=== PATIENT | male | born 1970 | race Caucasian/White ===

== ENCOUNTER 2018-09-23 09:53 | Emergency (ER) | payer MEDICAID ==
[~2018-09-23] VITALS: Ht 170.2 cm; Wt 70.0 kg
[~2018-09-23 09:53] MED LIST: ALBU8.5H8 IH; ALBU8HFA PO; ONDA8TAB9 PO; PANT-47 PO; PRED50TA PO; QUET50TA PO
[2018-09-23 10:00] VITALS: BP 131/78
[2018-09-23] MEDS ORDERED: DICL50TA8 PO (10:24)
[2018-09-23] MEDS ORDERED: ketorolac trometh inj. 60 MG/2 ML VIAL IM ONE (10:25)
== END 2018-09-23 11:28 | disposition home or self-care (01) ==
LOC: ER 09:53
DX: M25.511 Pain in right shoulder (principal); G89.29 Other chronic pain; I10 Essential (primary) hypertension; J45.909 Unspecified asthma, uncomplicated; Z79.899 Other long term (current) drug therapy; Z56.0 Unemployment, unspecified
CPT/HCPCS: 73030; 96372; 99283; J1885

== ENCOUNTER 2020-08-28 06:29 | Inpatient (IN) | payer MEDICAID ==
[~2020-08-28] VITALS: Ht 167.6 cm; Wt 81.8 kg
[~2020-08-28 06:29] MED LIST changes: +DICL50TA8 PO
[2020-08-28] MEDS ORDERED: normal saline 1000ML IV soln IVB ONE (07:05)
[2020-08-28] MEDS ORDERED: proCHLORperazine 10 MG/2 ml inj IV ONE (07:05)
[2020-08-28] MEDS ORDERED: pantoprazole 40 MG vial IV ONE (07:05)
[2020-08-28] MEDS ORDERED: diazepam inj 5 MG/ML inj. IV ONE ×2 (07:05→08:40)
[2020-08-28 07:43] LABS: BASOPHILS % (AUTO) 0.3 % (0-1); LYMPHOCYTES # (AUTO) 1.6 X10'3 (1.1-4.8); MEAN CORPUSCULAR HEMOGLOBIN 25.1 PG (27.0-31.0)
[2020-08-28 07:45] LABS: BASOPHILS # (AUTO) 0.1 X10'3 (0-0.2); EOSINOPHILS % (AUTO) 0 % (0-6); HEMATOCRIT 38.8 % (42.0-52.0); HEMOGLOBIN 12.4 g/dl (14.0-17.9); LYMPHOCYTES % (AUTO) 9.2 % (21-51); MEAN CORPUSCULAR HGB CONC 32.1 g/dL (33.0-36.5); MEAN CORPUSCULAR VOLUME 78.2 FL (78-98); MEAN PLATELET VOLUME 9.5 FL (7.4-10.4); MONOCYTES % (AUTO) 5.6 % (2-12); NEUTROPHILS # (AUTO) 14.5 X10'3 (1.8-7.7); NEUTROPHILS % (AUTO) 84.9 % (42-75); PLATELET COUNT 281 X10'3 (140-440); RED BLOOD COUNT 4.96 X10'6 (4.70-6.10); RED CELL DISTRIBUTION WIDTH 18.3 % (11.5-14.5); WHITE BLOOD COUNT 17.1 X10'3 (4.5-11.0)
[2020-08-28 07:59] LABS: ALANINE AMINOTRANSFERASE 29 U/L (12-78); ALBUMIN 4.3 G/DL (3.4-5.0); ALKALINE PHOSPHATASE 104 IU/L (46-116); ANION GAP 20 (8-16); ASPARTATE AMINO TRANSFERASE 40 U/L (10-37); BILIRUBIN,TOTAL 0.4 MG/DL (0.1-1.0); BLOOD UREA NITROGEN 18 MG/DL (7-18); BUN/CREATININE RATIO 14.3 (5.4-32.0); CHLORIDE 99 MMOL/L (99-107); CREATININE 1.26 MG/DL (0.60-1.10); GLUCOSE 137 MG/DL (70-104); LIPASE < 50 U/L (73-393); POTASSIUM 3.3 MMOL/L (3.5-5.1); SODIUM 142 MMOL/L (135-145); TOTAL PROTEIN 8.5 G/DL (6.4-8.2); eGFR 60 ML/MIN
[2020-08-28 08:21] LABS: GASTRIC OCCULT BLOOD POSITIVE (Neg)
[2020-08-28] MEDS ORDERED: ondansetron/PF 4mg/2ml inj IV ONE (09:35)
[2020-08-28] MEDS ORDERED: metoclopramide 5 mg/ml inj IV ONE (10:30)
--- NOTE | 2020-08-28 10:30 | NUR ---
SPOKE WITH PT'S AND UPDATED HER ON HIS CONDITION. PT C/O STILL FEELING NAUSEOUS, DR. VINSON WAS MADE AWARE.
--- NOTE | 2020-08-28 11:22 | NUR ---
po challenging pt
[2020-08-28] MEDS ORDERED: iohexol 300mg/ml 100ml inj. ONE (12:44)
[2020-08-28] MEDS ORDERED: IPRA4AER PO (14:18)
[2020-08-28] MEDS ORDERED: ALBU17AE26 PO (14:18)
[2020-08-28] MEDS ORDERED: DICL100G30 TOP (14:18)
[2020-08-28] MEDS ORDERED: QUET400T54 PO (14:18)
[2020-08-28] MEDS ORDERED: GABA-530 PO (14:18)
[2020-08-28] MEDS ORDERED: BECL10.6 PO (14:18)
[2020-08-28] MEDS ORDERED: ESZO3TAB44 PO (14:18)
[2020-08-28] MEDS ORDERED: OMEP40CA13 PO (14:18)
[2020-08-28] MEDS ORDERED: mag hydrox/Alum hydrox/simeth 30ml oral suspension PO PRN ×2 (14:55→16:50)
[2020-08-28] MEDS ORDERED: magnesium hydroxide 30ml (MOM) UD suspension PO PRN ×2 (14:55→16:50)
[2020-08-28] MEDS ORDERED: acetaminophen 325mg tablet PO PRN ×3 (14:55→16:50)
[2020-08-28] MEDS: pantoprazole 40MG/NS 100ML BAG 100 ML IV SCH ×3 (15:20→20:39)
[2020-08-28] MEDS ORDERED: zolpidem 5mg tablet PO PRN (16:45)
[2020-08-28] MEDS ORDERED: albuterol 2.5 MG/3 ML nebule NEB PRN (16:45)
[2020-08-28] MEDS ORDERED: acetaminophen 650mg rectal suppository RC PRN (16:50)
[2020-08-28] MEDS ORDERED: metoclopramide 5 mg/ml inj IV PRN (16:50)
[2020-08-28] MEDS ORDERED: magnesium 4gm in 100ml NS 100 ML IV PRN (16:50)
[2020-08-28] MEDS ORDERED: potassium Cl 20 mEq SR tablet PO PRN ×2 (16:50)
[2020-08-28] MEDS ORDERED: HYDROcodone/acetaminophen 5mg/325mg tablet PO PRN (16:50)
[2020-08-28] MEDS ORDERED: ondansetron/PF 4mg/2ml inj IV PRN (16:50)
[2020-08-28] MEDS ORDERED: magnesium Cl slow-release 64mg tablet PO PRN (16:50)
[2020-08-28] MEDS ORDERED: bisacodyl 10mg suppository rectal RC PRN (16:50)
[2020-08-28] MEDS ORDERED: morphine 2 MG/ML inj. syringe IV PRN (16:50)
[2020-08-28] MEDS ORDERED: magnesium 2GM in 50ml NS 50 ML IV PRN (16:50)
[2020-08-28] MEDS ORDERED: potassium CL 10mEq/100ml bag 100 ML IV PRN (16:50)
[2020-08-28] MEDS: dextrose 5%-normal saline 1,000 ML IV SCH (17:18)
[2020-08-28 17:43] LABS: HEMOGLOBIN A1C 6.2 % (4.5-6.2)
[2020-08-28] MEDS: K and/or MAG REPLACEMENT MC SCH (19:56)
[2020-08-28] MEDS ORDERED: QUETIAPINE FUMARATE PO SCH (21:00)
[2020-08-28] MEDS: budesonide 0.5mg/2ml UD nebule IH SCH (21:18)
--- NOTE | 2020-08-28 21:24 | NUR ---
RT JUST AT BEDSIDE TO GIVE PULMICORT NEB
[2020-08-28] MEDS: morphine 2 MG/ML inj. syringe IV PRN (21:46)
--- NOTE | 2020-08-28 21:54 | NUR ---
PT TAKES SEROQUEL 400 MG 2 TABS HS. WE DO NOT HAVE THIS IN OUR FORMULARY AND THE PT IS UNABLE TO BRING IT HERE. PHARMACIST, MARIO, CONSULTED AND RECOMMENDS SEROQUEL IR [address] MOORE CALLED AND VERBAL RECEIVED FOR THIS NEW ORDER. PT PL[facility] BED. GIVEN MSIV 2 MG FOR ABD PAIN OF 7 OUT OF 10. PT WITH NO NAUSEA.
--- NOTE | 2020-08-28 22:11 | NUR ---
relieving RN for break, pt is now on hospital bed, no rooms available
[2020-08-28] MEDS: quetiapine 100mg tablet PO SCH (22:19)
--- NOTE | 2020-08-28 23:58 | NUR ---
PT SLEEPING. AWAITING IPA. LIKELY ADMIT HOLD IN ER THROUGH THE NIGHT.
[2020-08-29] VITALS (10 sets, daily range): BP systolic 131–150; BP diastolic 76–98
--- NOTE | 2020-08-29 00:10 | NUR ---
PT VOIDED 400 CC'S LIGHT CL URINE IN URINAL. SAMPLE SENT FOR UA. PT WITHI NO NEEDS AT THIS TIME. REPORTS MINIMAL PAIN AND NO NAUSEA. AWAITING IPA.
[2020-08-29 00:39] LABS: CLARITY,URINE CLEAR (Clear); COLOR,URINE YELLOW (Yellow); GLUCOSE, URINE NEGATIVE (Neg); KETONES,URINE 40 mg/dl (Neg); LEUKOCYTE ESTERASE ,URINE NEGATIVE (Neg); NITRITES, URINE NEGATIVE (Neg); OCCULT BLOOD,URINE NEGATIVE (Neg); PH,URINE 7.5 (4.8-8.0); PROTEIN,URINE TRACE mg/dl (Neg); UROBILINOGEN,URINE 0.2 E.U/dL (0.2-1.0)
[2020-08-29 00:42] LABS: UA COLLECTION TYPE URINAL
[2020-08-29 00:45] LABS: URINE AMPHETAMINE SCREEN NEGATIVE (Neg); URINE BARBITUATE SCREEN NEGATIVE (Neg); URINE BENZODIAZEPINES SCREEN POSITIVE (Neg); URINE CANNABINOID SCREEN POSITIVE (Neg); URINE COCAINE SCREEN NEGATIVE (Neg); URINE METHADONE SCREEN NEGATIVE (Neg); URINE OPIATE SCREEN POSITIVE (Neg); URINE PHENCYCLIDINE SCREEN NEGATIVE (Neg)
[2020-08-29 00:54] LABS: SQUAMOUS EPITHELIAL CELL,UR FEW /LPF (FEW); WBC,URINE 0-4 /HPF (0-4)
[2020-08-29 00:55] LABS: BACTERIA,URINE FEW /HPF (Neg); RBC,URINE NONE SEEN /HPF (0-2)
--- NOTE | 2020-08-29 01:49 | NUR ---
pt awake and up to br to void. vss. pain increasing to 7-8 and some mild nausea. given msiv 2 mg and zofran
[2020-08-29] MEDS: ondansetron/PF 4mg/2ml inj IV PRN ×2 (01:50→17:23)
[2020-08-29] MEDS: morphine 2 MG/ML inj. syringe IV PRN ×5 (01:50→19:06)
[2020-08-29] MEDS: pantoprazole 40MG/NS 100ML BAG 100 ML IV SCH ×4 (01:56→17:43)
[2020-08-29] MEDS: dextrose 5%-normal saline 1,000 ML IV SCH ×2 (04:52→12:50)
[2020-08-29] MEDS: HYDROcodone/acetaminophen 10/325mg tab PO PRN ×2 (04:55→17:43)
--- NOTE | 2020-08-29 06:48 | NUR ---
Patient in room ED 13. I have received report from joanna caba and had the opportunity to ask questions and assume patient care.
[2020-08-29] MEDS: quetiapine 100mg tablet PO SCH ×2 (08:00→19:43)
[2020-08-29 08:25] LABS: BASOPHILS % (AUTO) 0.3 % (0-1); EOSINOPHILS % (AUTO) 0.1 % (0-6); HEMATOCRIT 32.3 % (42.0-52.0); HEMOGLOBIN 10.5 g/dl (14.0-17.9); LYMPHOCYTES # (AUTO) 1.8 X10'3 (1.1-4.8); LYMPHOCYTES % (AUTO) 20.7 % (21-51); MEAN CORPUSCULAR HEMOGLOBIN 25.4 PG (27.0-31.0); MEAN CORPUSCULAR HGB CONC 32.7 g/dL (33.0-36.5); MEAN CORPUSCULAR VOLUME 77.7 FL (78-98); MEAN PLATELET VOLUME 9.3 FL (7.4-10.4); MONOCYTES # (AUTO) 1.2 X10'3 (0-0.9); MONOCYTES % (AUTO) 13.7 % (2-12); NEUTROPHILS # (AUTO) 5.7 X10'3 (1.8-7.7); NEUTROPHILS % (AUTO) 65.2 % (42-75); PLATELET COUNT 194 X10'3 (140-440); RED BLOOD COUNT 4.15 X10'6 (4.70-6.10); RED CELL DISTRIBUTION WIDTH 17.9 % (11.5-14.5); WHITE BLOOD COUNT 8.8 X10'3 (4.5-11.0)
[2020-08-29 08:40] LABS: ALANINE AMINOTRANSFERASE 22 U/L (12-78); ALBUMIN 3.2 G/DL (3.4-5.0); ALBUMIN/GLOBULIN RATIO 0.9 (1.1-1.5); ALKALINE PHOSPHATASE 76 IU/L (46-116); ANION GAP 6 (8-16); ASPARTATE AMINO TRANSFERASE 25 U/L (10-37); BILIRUBIN,TOTAL 0.4 MG/DL (0.1-1.0); BLOOD UREA NITROGEN 11 MG/DL (7-18); BUN/CREATININE RATIO 13.9 (5.4-32.0); CALCIUM 8.1 MG/DL (8.5-10.1); CHLORIDE 105 MMOL/L (99-107); CHOL/HDL RATIO 3.4 (0.00-4.99); CHOLESTEROL 193 MG/DL (0-200); CREATININE 0.79 MG/DL (0.60-1.10); GLUCOSE 131 MG/DL (70-104); HDL CHOLESTEROL 57 MG/DL (35-60); LDL CHOLESTEROL 118 MG/DL (50-100); MAGNESIUM 1.9 MG/DL (1.5-2.4); SODIUM 138 MMOL/L (135-145); TOTAL CARBON DIOXIDE 27.3 MMOL/L (24-32); TOTAL PROTEIN 6.6 G/DL (6.4-8.2); TRIGLYCERIDES 71 MG/DL (20-135); eGFR > 90 ML/MIN
[2020-08-29 08:42] LABS: POTASSIUM 2.9 MMOL/L (3.5-5.1)
--- NOTE | 2020-08-29 08:44 | NUR ---
PAGED DR KWOK RE: PAGER ID: [phone] MESSAGE: ALEXA SMITH. Ashley 2.9. WILL REPLACE PER PROTOCOL. SURGICAL [facility] [id number]
[2020-08-29] MEDS: K and/or MAG REPLACEMENT MC SCH ×2 (08:46→19:07)
[2020-08-29] MEDS: potassium CL 10mEq/100ml bag 100 ML IV PRN ×8 (08:49→22:51)
[2020-08-29] MEDS: budesonide 0.5mg/2ml UD nebule IH SCH ×2 (08:56→19:52)
[2020-08-29] MEDS ORDERED: ipratropium/albuterol 3ml nebule NEB PRN (09:15)
[2020-08-29] MEDS: metroNIDAZOLE-Flagyl 500mg/NS 100 ML IV SCH ×2 (09:54→17:43)
[2020-08-29 10:21] LABS: FERRITIN 19 NG/ML (26-388)
[2020-08-29 11:00] LABS: IRON 101 UG/DL (53-167)
[2020-08-29 11:01] LABS: % IRON SATURATION 29 % (11-46); TOTAL IRON BINDING CAPACITY 347 UG/DL (259-388)
[2020-08-29] MEDS ORDERED: MIDAZolam 5mg/5ml vial ONE (11:53)
[2020-08-29] MEDS ORDERED: LIDOcaine Viscous 15ml cup ONE (11:53)
[2020-08-29] MEDS ORDERED: fentaNYL/PF 50MCG/1 ML 2ML syringe ONE (11:53)
[2020-08-29] MEDS: levoFLOXACIN-Levaquin 750MG/D5 150 ML IV SCH (14:11)
[2020-08-29] MEDS: sodium ferric gluc complex inj 125 MG in normal saline 100ml IV soln 90 ML IV SCH (14:53)
--- NOTE | 2020-08-29 18:00 | NUR ---
I have reviewed and agree with all medications administered and interventions performed by [employer] Student She Juárez.
--- NOTE | 2020-08-29 18:30 | NUR ---
Problems reprioritized. Patient report given, questions answered & plan of care reviewed with matthew caba.
[2020-08-29] MEDS: gabapentin 100mg capsule PO PRN (19:04)
[2020-08-29] MEDS: diatr meglu/diatrizoate 30ml oral sol.-(3 dose) bottle PO SCH (21:35)
[2020-08-29] MEDS: LORazepam 2 mg/ml vial IV PRN (21:37)
[2020-08-30] VITALS: BP 118/64
[2020-08-30] MEDS: pantoprazole 40MG/NS 100ML BAG 100 ML IV SCH ×3 (00:16→05:28)
[2020-08-30] MEDS: metroNIDAZOLE-Flagyl 500mg/NS 100 ML IV SCH ×4 (00:17→23:52)
[2020-08-30] MEDS: dextrose 5%-normal saline 1,000 ML IV SCH ×3 (00:18→19:20)
[2020-08-30 00:37] VITALS: BP 118/64
[2020-08-30] MEDS: HYDROcodone/acetaminophen 10/325mg tab PO PRN ×2 (00:37→05:28)
[2020-08-30] MEDS: morphine 2 MG/ML inj. syringe IV PRN ×5 (02:29→23:55)
[2020-08-30 02:47] LABS: BASOPHILS % (AUTO) 0.5 % (0-1); EOSINOPHILS % (AUTO) 0.4 % (0-6); HEMATOCRIT 30.2 % (42.0-52.0); HEMOGLOBIN 9.9 g/dl (14.0-17.9); LYMPHOCYTES # (AUTO) 2.2 X10'3 (1.1-4.8); LYMPHOCYTES % (AUTO) 28.5 % (21-51); MEAN CORPUSCULAR HGB CONC 32.9 g/dL (33.0-36.5); MEAN PLATELET VOLUME 9.6 FL (7.4-10.4); MONOCYTES # (AUTO) 1.1 X10'3 (0-0.9); MONOCYTES % (AUTO) 13.7 % (2-12); NEUTROPHILS # (AUTO) 4.5 X10'3 (1.8-7.7); NEUTROPHILS % (AUTO) 56.9 % (42-75); PLATELET COUNT 194 X10'3 (140-440); RED BLOOD COUNT 3.82 X10'6 (4.70-6.10); RED CELL DISTRIBUTION WIDTH 17.8 % (11.5-14.5); WHITE BLOOD COUNT 7.9 X10'3 (4.5-11.0)
[2020-08-30 02:56] LABS: ALANINE AMINOTRANSFERASE 19 U/L (12-78); ALBUMIN 2.9 G/DL (3.4-5.0); ALKALINE PHOSPHATASE 72 IU/L (46-116); ANION GAP 6 (8-16); ASPARTATE AMINO TRANSFERASE 20 U/L (10-37); BILIRUBIN,TOTAL 0.4 MG/DL (0.1-1.0); BLOOD UREA NITROGEN 7 MG/DL (7-18); BUN/CREATININE RATIO 8.8 (5.4-32.0); CALCIUM 7.8 MG/DL (8.5-10.1); CHLORIDE 107 MMOL/L (99-107); GLUCOSE 110 MG/DL (70-104); MAGNESIUM 1.5 MG/DL (1.5-2.4); PHOSPHORUS 2.3 MG/DL (2.3-4.5); POTASSIUM 3.5 MMOL/L (3.5-5.1); SODIUM 140 MMOL/L (135-145); TOTAL CARBON DIOXIDE 27.5 MMOL/L (24-32); TOTAL PROTEIN 5.9 G/DL (6.4-8.2); eGFR > 90 ML/MIN
--- NOTE | 2020-08-30 06:32 | NUR ---
Reported off to Maricarmen CHEN. Patient is resting with relaxed and unlabored respirations. Call light and items of frequent use within reach.
--- NOTE | 2020-08-30 06:39 | NUR ---
Patient in room [facility]. I have received report from APRIL Lua and had the opportunity to ask questions and assume patient care.
[2020-08-30] MEDS: budesonide 0.5mg/2ml UD nebule IH SCH ×2 (07:15→20:35)
[2020-08-30] MEDS: quetiapine 100mg tablet PO SCH ×2 (07:20→19:14)
[2020-08-30] MEDS: diatr meglu/diatrizoate 30ml oral sol.-(3 dose) bottle PO SCH ×2 (07:21→10:32)
[2020-08-30 08:00] VITALS: BP 123/76
[2020-08-30] MEDS: K and/or MAG REPLACEMENT MC SCH ×2 (08:00→19:07)
[2020-08-30] MEDS: sodium ferric gluc complex inj 125 MG in normal saline 100ml IV soln 90 ML IV SCH (09:27)
[2020-08-30] MEDS ORDERED: iohexol 300mg/ml 100ml inj. ONE (10:30)
--- NOTE | 2020-08-30 10:42 | NUR ---
Pt transported to CT via wheelchair.
--- NOTE | 2020-08-30 10:59 | NUR ---
Pt back from CT
[2020-08-30 11:00] VITALS: BP 147/93
[2020-08-30] MEDS: levoFLOXACIN-Levaquin 750MG/D5 150 ML IV SCH (11:24)
[2020-08-30] MEDS ORDERED: LORazepam 2 mg/ml vial IV ONE (12:50)
[2020-08-30] MEDS: gabapentin 100mg capsule PO PRN ×2 (14:59→21:31)
--- NOTE | 2020-08-30 16:33 | NUR ---
Pt transported to MRI via wheelchair
[2020-08-30 18:00] VITALS: BP 144/90
--- NOTE | 2020-08-30 18:37 | NUR ---
Problems reprioritized. Patient report given, questions answered & plan of care reviewed with APRIL Posada.
--- NOTE | 2020-08-30 18:43 | NUR ---
Patient in room [facility]. I have received report from JUSTYN CHEN and had the opportunity to ask questions and assume patient care.
[2020-08-30] MEDS: pantoprazole 40mg Tablet.DR PO SCH (19:15)
[2020-08-31 00:22] VITALS: BP 151/90
[2020-08-31] MEDS: morphine 2 MG/ML inj. syringe IV PRN (04:33)
[2020-08-31] MEDS: dextrose 5%-normal saline 1,000 ML IV SCH (04:37)
[2020-08-31 05:56] LABS: BASOPHILS % (AUTO) 0.6 % (0-1); EOSINOPHILS # (AUTO) 0.1 X10'3 (0-0.9); EOSINOPHILS % (AUTO) 1.8 % (0-6); HEMATOCRIT 32.6 % (42.0-52.0); HEMOGLOBIN 10.5 g/dl (14.0-17.9); LYMPHOCYTES # (AUTO) 1.8 X10'3 (1.1-4.8); LYMPHOCYTES % (AUTO) 33.1 % (21-51); MEAN CORPUSCULAR HEMOGLOBIN 25.3 PG (27.0-31.0); MEAN CORPUSCULAR HGB CONC 32.1 g/dL (33.0-36.5); MEAN PLATELET VOLUME 9.7 FL (7.4-10.4); MONOCYTES # (AUTO) 0.8 X10'3 (0-0.9); MONOCYTES % (AUTO) 14.8 % (2-12); NEUTROPHILS # (AUTO) 2.7 X10'3 (1.8-7.7); NEUTROPHILS % (AUTO) 49.7 % (42-75); PLATELET COUNT 186 X10'3 (140-440); RED BLOOD COUNT 4.12 X10'6 (4.70-6.10); RED CELL DISTRIBUTION WIDTH 18.7 % (11.5-14.5); WHITE BLOOD COUNT 5.4 X10'3 (4.5-11.0)
[2020-08-31 06:06] LABS: ALANINE AMINOTRANSFERASE 20 U/L (12-78); ALBUMIN 2.9 G/DL (3.4-5.0); ALBUMIN/GLOBULIN RATIO 0.9 (1.1-1.5); ALKALINE PHOSPHATASE 66 IU/L (46-116); ANION GAP 10 (8-16); ASPARTATE AMINO TRANSFERASE 22 U/L (10-37); BILIRUBIN,TOTAL 0.3 MG/DL (0.1-1.0); BLOOD UREA NITROGEN 5 MG/DL (7-18); BUN/CREATININE RATIO 5.9 (5.4-32.0); CALCIUM 8.2 MG/DL (8.5-10.1); CHLORIDE 107 MMOL/L (99-107); CREATININE 0.85 MG/DL (0.60-1.10); GLUCOSE 122 MG/DL (70-104); MAGNESIUM 1.7 MG/DL (1.5-2.4); PHOSPHORUS 3.4 MG/DL (2.3-4.5); POTASSIUM 3.2 MMOL/L (3.5-5.1); SODIUM 143 MMOL/L (135-145); TOTAL CARBON DIOXIDE 26.1 MMOL/L (24-32); TOTAL PROTEIN 6.1 G/DL (6.4-8.2); eGFR > 90 ML/MIN
--- NOTE | 2020-08-31 06:23 | NUR ---
Problems reprioritized. Patient report given, questions answered & plan of care reviewed with JUSTYN CHEN.
--- NOTE | 2020-08-31 06:28 | NUR ---
Patient in room [facility]. I have received report from APRIL Posada and had the opportunity to ask questions and assume patient care.
[2020-08-31] MEDS: budesonide 0.5mg/2ml UD nebule IH SCH (07:18)
[2020-08-31] MEDS: LORazepam 2 mg/ml vial IV PRN (07:46)
[2020-08-31] MEDS: pantoprazole 40mg Tablet.DR PO SCH (07:46)
[2020-08-31] MEDS: metroNIDAZOLE-Flagyl 500mg/NS 100 ML IV SCH (07:46)
[2020-08-31] MEDS: quetiapine 100mg tablet PO SCH (07:46)
[2020-08-31 07:52] VITALS: BP 129/82
[2020-08-31] MEDS: K and/or MAG REPLACEMENT MC SCH (08:00)
[2020-08-31] MEDS: sodium ferric gluc complex inj 125 MG in normal saline 100ml IV soln 90 ML IV SCH (08:52)
[2020-08-31] MEDS: levoFLOXACIN-Levaquin 750MG/D5 150 ML IV SCH (10:49)
[2020-08-31 11:00] VITALS: BP 127/86
[2020-08-31] MEDS ORDERED: FERR325T28 PO (12:39)
[2020-08-31] MEDS ORDERED: PANT40TA54 PO (12:39)
[2020-08-31] MEDS ORDERED: LEVO500T89 PO (12:39)
[2020-08-31] MEDS ORDERED: ASCO-105 PO (12:39)
[2020-08-31] MEDS ORDERED: METR-159 PO (12:39)
[2020-08-31] MEDS ORDERED: HYDR-4383 PO (12:43)
--- NOTE | 2020-08-31 13:44 | NUR ---
Pt discharged per NSG. Discharge instructions and medications reviewed. New prescriptions sent to [facility] on [address]. Pt instructed to follow up with PCP and Dr Guy, as well as to abstain from drinking alcohol, smoking tobacco, and smoking marijuana. Pt stated understanding and willingness to comply. IV DC'd, cannula intact. Pt states ride is en route and will let us know when they have arrived.
--- NOTE | 2020-08-31 13:55 | NUR ---
Pt discharged to home via personal vehicle. Escorted to front lobby via wheelchair by PCT, all personal belongings sent home with patient.
[2020-08-31] MEDS ORDERED: GADOTERATE MEGLUMINE 7.5 MMOL/15 ML VIAL IV ONE (15:16)
== END 2020-08-31 13:55 | disposition home or self-care (01) | DRG 243 ==
LOC: ER 06:30 → ED HOLD 14:53 → SUR 3N 08-29 07:00
PROVIDERS: ADMIT Family Medicine; ATTEND Family Medicine
PROC: BW211ZZ Computerized Tomography (CT Scan) of Abdomen and Pelvis using Low Osmolar Contrast (ICD-10-PCS; 2020-08-28)
PROC: 0DB58ZX Excision of Esophagus, Via Natural or Artificial Opening Endoscopic, Diagnostic (ICD-10-PCS; principal; 2020-08-29)
PROC: BW211ZZ Computerized Tomography (CT Scan) of Abdomen and Pelvis using Low Osmolar Contrast (ICD-10-PCS; 2020-08-30)
DX: K21.01 Gastro-esophageal reflux disease with esophagitis, with bleeding (principal); D50.9 Iron deficiency anemia, unspecified; E86.0 Dehydration; E87.6 Hypokalemia; F12.10 Cannabis abuse, uncomplicated; F17.200 Nicotine dependence, unspecified, uncomplicated; F20.9 Schizophrenia, unspecified; I10 Essential (primary) hypertension; I73.9 Peripheral vascular disease, unspecified; J44.9 Chronic obstructive pulmonary disease, unspecified; K44.9 Diaphragmatic hernia without obstruction or gangrene; K52.9 Noninfective gastroenteritis and colitis, unspecified; F32.9 Major depressive disorder, single episode, unspecified; F41.9 Anxiety disorder, unspecified; G89.29 Other chronic pain; Z87.11 Personal history of peptic ulcer disease
CPT/HCPCS: 36415; 43239; 74022; 74177; 74178; 74183; 80053; 80061; 80305; 81001; 82271; 82728; 83036; 83540; 83550; 83605; 83690; 83735; 84100; 84145; 84443; 85025; 86885; 86900; 86901; 87040; 87081; 94640; 94760; 96374; 96375; 99152; 99153; 99285; A4620; A9575; C9113; G0378; J0780; J1956; J2060; J2250; J2270; J2405; J2765; J2916; J3010; J3360; J3480; J3490; J7030; J7040; J7042; J7626; Q9963; Q9967